=== PATIENT | male | born 1975 | race Two or more races ===

== ENCOUNTER → 2017-03-19 | Outpatient (CLI) | payer OTHER ==
--- NOTE | 2017-03-25 09:33 | SLEEPCENT ---
DATE OF STUDY: 03/19/2017 REFERRING PROVIDER: Dr. Malou Villanueva INTERPRETATION: Nocturnal polysomnography was performed to re-evaluate obstructive sleep apnea in this patient who has a history of mild obstructive sleep apnea being treated by a dental appliance but with ongoing symptoms of excessive daytime sleepiness, insomnia, snoring, observed apnea, gasping respirations, and nonrestorative sleep. With the dental appliance in place, a total of 8 hours and 31 minutes of data was reviewed with 430 minutes of sleep identified. Sleep latency was 6 minutes. Rapid eye movement (REM) latency was 45 minutes. All stages of sleep were identified. Sleep efficiency was 85.1%. EKG showed sinus bradycardia with an average heart rate of 52 beats per minute. Speeding and slowing was noted surrounding some respiratory events. No epileptiform discharge observed. There were 35 respiratory events identified of 10 seconds in duration or longer for an apnea hypopnea index (AHI) of 5.1. The events were predominantly transitional and central in nature, though there were a few obstructive and mixed events present. Respiratory effort related arousals (RERA) index was 4.3 giving a total respiratory disturbance index (RDI) of 9.4. Mean oxygen saturation is 94% with a minimal recorded value of 88%. Periodic limb movement index was 6.4. IMPRESSION: 1. Obstructive sleep apnea, treated by dental appliance. Still with some events (predominantly central and transitional) and desaturations to the 80's when wearing the device. 2. Periodic limb movements, mild. RECOMMENDATIONS: He has ongoing mild obstructive sleep apnea with the dental appliance in place and options would include adjustment in his dental appliance with a repeat polysomnogram or consideration of continuous positive airway pressure (CPAP). Clinical correlation will be necessary to ensure eradication of symptoms. edited: 03/25/2017 1245 tkf MTDD
== END ==
LOC: M SLEEP 19:54
PROVIDERS: ATTEND Internal Medicine Pulmonary Disease
DX: G47.33 Obstructive sleep apnea (adult) (pediatric) (principal)

== ENCOUNTER → 2017-07-24 | Outpatient (CLI) | payer OTHER ==
--- NOTE | 2017-07-24 19:11 | REP ---
RIGHT KNEE SERIES: Five views of the right knee are performed. There is no acute fracture or dislocation. There is mild diffuse joint space narrowing, subchondral sclerosis and spurring. I do not see a significant joint effusion. IMPRESSION: Mild diffuse degenerative changes. Signed by Phuc Maloney MD 07/24/2017 08:13 P
== END ==
LOC: M RAD 16:35
PROVIDERS: ATTEND Physician Assistant Medical
DX: M25.561 Pain in right knee (principal)

== ENCOUNTER → 2018-02-05 | Outpatient (REF) | payer OTHER ==
[2018-02-05 14:43] LABS: BASO # 0.1 10^3/uL (0.0-0.2); BASO % 1.3 % (0.0-1.0); EOS # 0.4 10^3/uL (0.0-0.50); EOS % 10.8 % (0.0-3.0); HEMOGLOBIN 14.4 g/dl (13.5-17.5); IMMATURE GRANULOCYTE % 0.3 % (0-3.0); LYMPH # 1.8 10^3/uL (1.5-4.5); LYMPH % 46.1 % (24.0-44.0); MEAN CORPUSCULAR HEMOGLOBIN 30.4 pg (27.0-33.0); MEAN CORPUSCULAR HGB CONC 34.3 g/dl (32.0-36.5); MEAN CORPUSCULAR VOLUME 88.6 fl (80.0-96.0); MONO # 0.4 10^3/uL (0.0-0.8); NEUTROPHILS # 1.3 10^3/uL (1.8-7.7); NEUTROPHILS % 32.5 % (36.0-66.0); PLATELET COUNT, AUTOMATED 320 10^3/uL (150-450); RED BLOOD COUNT 4.74 10^6/uL (4.30-6.10); RED CELL DISTRIBUTION WIDTH 12.9 % (11.5-14.5); WHITE BLOOD COUNT 3.9 10^3/uL (4.0-10.0)
[2018-02-05 14:56] LABS: ALBUMIN 3.9 GM/DL (3.2-5.2); ALBUMIN/GLOBULIN RATIO 1.22 (1.00-1.93); ALKALINE PHOSPHATASE 61 U/L (45-117); ALT/SGPT 29 U/L (12-78); ANION GAP 7 MEQ/L (8-16); AST/SGOT 20 U/L (7-37); BILIRUBIN,TOTAL 0.5 MG/DL (0.2-1.0); BLOOD UREA NITROGEN 12 MG/DL (7-18); CALCIUM LEVEL 8.4 MG/DL (8.5-10.1); CARBON DIOXIDE LEVEL 27 MEQ/L (21-32); CHLORIDE LEVEL 104 MEQ/L (98-107); CHOLESTEROL LEVEL 179 MG/DL (<200); CHOLESTEROL RISK RATIO 3.254 (<5); FREE T4 0.91 NG/DL (0.76-1.46); GLOMERULAR FILTRATION RATE > 60.0 (>60); GLUCOSE, FASTING 92 MG/DL (70-100); HDL CHOLESTEROL 55 MG/DL (>40); LDL CHOLESTEROL 114.4 MG/DL (<100); NON-HDL-C 124 MG/DL; POTASSIUM SERUM 4.4 MEQ/L (3.5-5.1); SODIUM LEVEL 138 MEQ/L (136-145); TOTAL PROTEIN 7.1 GM/DL (6.4-8.2); TRIGLYCERIDES LEVEL 48 MG/DL (<150)
== END ==
LOC: M SFHCPLAZ 14:07
DX: J45.20 Mild intermittent asthma, uncomplicated (principal); Z13.220 Encounter for screening for lipoid disorders; E66.09 Other obesity due to excess calories

== ENCOUNTER → 2018-12-13 | Outpatient (CLI) | payer OTHER ==
--- NOTE | 2018-12-14 10:33 | REP ---
Clinical: Post traumatic arthritis. Technique: AP, lateral, bilateral oblique and sunrise views of the right knee. Findings: Lateral view demonstrates prepatellar swelling. No acute fracture dislocation. No obvious effusion. Mild arthritic changes are appreciated including subchondral sclerosis to the tibial plateau with a very subtle early spurring as well as moderate spurring along the patellar contour with posterior patellar sclerosis and mild patellofemoral joint space narrowing. Impression: 1. Anterior/prepatellar swelling. 2. Mild arthritic changes. Electronically Signed by Tank Wagoner MD 12/14/2018 10:25 A
== END ==
LOC: M RAD 16:29
PROVIDERS: ATTEND Physician Assistant Medical
DX: M17.31 Unilateral post-traumatic osteoarthritis, right knee (principal)

== ENCOUNTER → 2019-01-25 | Outpatient (CLI) | payer OTHER ==
--- NOTE | 2019-01-26 12:37 | REP ---
MRI RIGHT KNEE: TECHNIQUE: Axial proton density fat saturation, sagittal proton density T2 STIR, water excitation, coronal proton density, proton density fat saturation. There is a complex tear of the posterior horn of the medial meniscus. There is a tear centrally of the posterior horn of the lateral meniscus. Cruciate and collateral ligaments are intact. Extensor mechanism is intact. There is nodular low signal in the superficial soft tissues anterior to the patellar tendon with the nodular areas all less than 1 cm in diameter. There is mild adjacent fluid and edema. Findings may represent bursitis in this region with nodular fibrotic change. There is mild diffuse chondromalacia of the patella. There is also mild diffuse chondromalacia in the lateral joint compartment. There is a more moderate degree of chondromalacia throughout the medial joint compartment. There is no significant bone marrow edema. There is no occult fracture. There is mild to moderate joint effusion. There is no popliteal cyst. The medial and lateral patellar retinacula are intact. IMPRESSION: Somewhat complex tear posterior horn medial meniscus. There is also a tear of the central aspect of the posterior horn of the lateral meniscus. The cruciate and collateral ligaments are intact. Multiple foci of nodular low signal in the superficial soft tissues anterior to the patellar tendon with mild surrounding fluid and edema. Findings suggest chronic prepatellar bursitis. Moderate chondromalacia of the medial femoral condyle and tibial plateau with otherwise mild global chondromalacia. Mild to moderate joint effusion. Electronically Signed by Phuc Maloney MD 01/27/2019 10:56 A
== END ==
LOC: M RAD 16:57
PROVIDERS: ATTEND Physician Assistant Medical
DX: S83.232A Complex tear of medial meniscus, current injury, left knee, initial encounter (principal); S83.281A Other tear of lateral meniscus, current injury, right knee, initial encounter; W19.XXXA Unspecified fall, initial encounter; M94.261 Chondromalacia, right knee; M17.31 Unilateral post-traumatic osteoarthritis, right knee

== ENCOUNTER → 2019-07-01 | Outpatient (REF) | payer OTHER ==
[2019-07-01 09:45] LABS: BASO # 0.1 10^3/uL (0.0-0.2); BASO % 0.8 % (0.0-1.0); EOS # 0.4 10^3/uL (0.0-0.5); EOS % 6.5 % (0.0-3.0); LYMPH # 2.7 10^3/uL (1.5-5.0); LYMPH % 43.7 % (24.0-44.0); MEAN CORPUSCULAR HEMOGLOBIN 30.7 pg (27.0-33.0); MEAN CORPUSCULAR HGB CONC 34.1 g/dl (32.0-36.5); MEAN CORPUSCULAR VOLUME 90.2 fl (80.0-96.0); MONO # 0.3 10^3/uL (0.0-0.8); MONO % 5.5 % (0.0-5.0); NEUTROPHILS # 2.7 10^3/uL (1.5-8.5); NEUTROPHILS % 43.3 % (36.0-66.0); PLATELET COUNT, AUTOMATED 278 10^3/uL (150-450); RED BLOOD COUNT 4.88 10^6/uL (4.30-6.10); WHITE BLOOD COUNT 6.2 10^3/uL (4.0-10.0)
[2019-07-01 10:15] LABS: ALBUMIN 3.9 GM/DL (3.2-5.2); ALT/SGPT 43 U/L (12-78); BILIRUBIN,TOTAL 0.6 MG/DL (0.2-1.0); BLOOD UREA NITROGEN 16 MG/DL (7-18); CARBON DIOXIDE LEVEL 28 MEQ/L (21-32); CHLORIDE LEVEL 106 MEQ/L (98-107); CHOLESTEROL LEVEL 207 MG/DL (<200); CHOLESTEROL RISK RATIO 3.184 (<5); CREATININE FOR GFR 1.06 MG/DL (0.70-1.30); FREE T4 0.89 NG/DL (0.76-1.46); GLOMERULAR FILTRATION RATE > 60.0 (>60); GLUCOSE, FASTING 92 MG/DL (70-100); HDL CHOLESTEROL 65 MG/DL (>40); LDL CHOLESTEROL 130 MG/DL (<100); NON-HDL-C 142 MG/DL; POTASSIUM SERUM 4.5 MEQ/L (3.5-5.1); SODIUM LEVEL 139 MEQ/L (136-145); TOTAL PROTEIN 7.7 GM/DL (6.4-8.2); TRIGLYCERIDES LEVEL 60 MG/DL (<150)
== END ==
LOC: M SFHCPLAZ 08:26
PROVIDERS: ATTEND Physician Assistant Medical
DX: Z12.5 Encounter for screening for malignant neoplasm of prostate (principal); J45.20 Mild intermittent asthma, uncomplicated; F41.9 Anxiety disorder, unspecified; Z13.220 Encounter for screening for lipoid disorders

== ENCOUNTER 2019-09-06 09:45 | Emergency (ER) | payer OTHER ==
[~2019-09-06] VITALS: Ht 170.2 cm; Wt 91.4 kg
[2019-09-06] MEDS ORDERED: dexameTHASONE 20 MG/5 ML VIAL (J1100) IV ONE (10:15)
[2019-09-06] MEDS ORDERED: LIDOCAINE VISCOUS 2% SOLN 15ML UDC SS ONE (10:15)
[2019-09-06] MEDS ORDERED: ISOVUE-370 76% 100ML VIAL (Q9967) As Ordered ONE (10:23)
[2019-09-06 10:36] LABS: BASO % 0.3 % (0.0-1.0); EOS # 0.4 10^3/uL (0.0-0.5); EOS % 4.1 % (0.0-3.0); HEMATOCRIT 44.6 % (42.0-52.0); HEMOGLOBIN 15.3 g/dl (13.5-17.5); LYMPH % 23.4 % (24.0-44.0); MEAN CORPUSCULAR HEMOGLOBIN 30.1 pg (27.0-33.0); MEAN CORPUSCULAR HGB CONC 34.3 g/dl (32.0-36.5); MEAN CORPUSCULAR VOLUME 87.6 fl (80.0-96.0); MONO # 0.4 10^3/uL (0.0-0.8); MONO % 4.9 % (0.0-5.0); NEUTROPHILS # 5.8 10^3/uL (1.5-8.5); NEUTROPHILS % 67.2 % (36.0-66.0); PLATELET COUNT, AUTOMATED 314 10^3/uL (150-450); RED BLOOD COUNT 5.09 10^6/uL (4.30-6.10); WHITE BLOOD COUNT 8.6 10^3/uL (4.0-10.0)
[2019-09-06 11:04] LABS: MONO REFLEX EBV COMP NEGATIVE (NEGATIVE)
--- NOTE | 2019-09-06 11:16 | REP ---
Clinical: Pain and swelling. Rule out abscess. Technique: Axial contrast enhanced images from the skull base to the thoracic inlet with coronal and sagittal re-formations using 100 ml Isovue 370 intravenous contrast material. Findings: There is no mass identified. There is no tonsillar or adenoidal enlargement. There is no abscess identified. The airway is normal. There is no cervical adenopathy. The thyroid is normal. The submandibular and parotid glands are normal. There is no osseous lesion. The lung apices are normal. Impression: Normal contrast enhanced neck CT. No mass or abscess appreciated. Electronically Signed by Tank Wagoner MD 09/06/2019 11:07 A
[2019-09-06] MEDS ORDERED: LIDO1SOL8 PO (11:28)
[2019-09-06 11:38] VITALS: BP 115/68
[2019-09-10 00:08] LABS: EBV AB TO NUCLEAR ANTIGEN <18.0 U/mL (0.0-17.9); EBV VIRAL CAPSID AG IgG <18.0 U/mL (0.0-17.9); EBV VIRAL CAPSID AG IgM <36.0 U/mL (0.0-35.9)
== END 2019-09-06 11:44 | disposition home or self-care (01) ==
LOC: M ED 09:45
DX: K12.2 Cellulitis and abscess of mouth (principal); K21.9 Gastro-esophageal reflux disease without esophagitis
CPT/HCPCS: 70491; 80047; 83605; 85025; 86308; 86663; 86664; 86665; 87880; 96374; 99284; J1100; Q9967

== ENCOUNTER → 2020-05-23 | Outpatient (REF) | payer OTHER ==
[~2020-05-23] MED LIST: LIDO2SOL17 PO
== END ==
LOC: M LAB REF 21:51
PROVIDERS: ATTEND Physician Assistant
DX: Z20.828 Contact with and (suspected) exposure to other viral communicable diseases (principal)

== ENCOUNTER → 2020-06-05 | Outpatient (REF) | payer OTHER | LOC: M LAB REF 21:43 | PROVIDERS: ATTEND Physician Assistant Medical | DX: Z20.828 Contact with and (suspected) exposure to other viral communicable diseases (principal) ==